=== PATIENT | male | born 1960 | race Caucasian/White ===

== ENCOUNTER 2016-06-01 05:44 | Emergency (ER) | payer MEDICARE ==
[~2016-06-01 05:44] MED LIST: ART2 PO; ASAB PO; BUSPAR10 PO; CEFT5 PO; DIOVAN HCT PO; DSS PO; FISH-EPA1000 MG PO; FLOMAX4 PO; FOLBEE PLUS PO; LORTAB 5 PO; MIRALAXPKT PO; MUCINEX600 MG PO; NALTREXONE PO; NTG150 SL; SUPER B-100 PO; T PO; VITAMIN D1000 UNI1 PO; VITC500 PO; VITE PO; ZOFRAN4 PO
== END 2016-06-01 08:05 | disposition expired ==
LOC: ER 05:44
DX: I46.9 Cardiac arrest, cause unspecified (principal); I10 Essential (primary) hypertension; Z85.47 Personal history of malignant neoplasm of testis; Z88.5 Allergy status to narcotic agent; Z79.899 Other long term (current) drug therapy; Z79.82 Long term (current) use of aspirin
CPT/HCPCS: 99285